=== PATIENT | male | born 1935 | race Caucasian/White ===

== ENCOUNTER 2016-10-24 19:53 | Inpatient (IN) | payer OTHER ==
--- NOTE | ~2016-10-24 | CN ---
Consultation Report [facility] [address]. [address] NAME: LEONILA RAHMAN : 37 STATUS : ADM IN PAT#: [id number] AGE: 81 ADM/REG DATE : 10/24/16 MR#: [id number] REPORT SERV DATE: 10/26/16 DICTATED BY: YADIRA ANGEL DATE: 10/25/16 REPORT STATUS : Draft TRANSCRIBED BY: MODL DATE: 10/25/16 DATE OF CONSULTATION: 10/25/2016 REASON FOR CONSULTATION: Abnormal CT scan of the chest. HISTORY OF PRESENT ILLNESS: Mr. Rahman is a 81-year-old white male, former smoker, with COPD and history of a left pneumonectomy years ago secondary to "something growing, not cancer." He was admitted complaining of shortness of breath after a recent ICU stay with mechanical ventilation at [facility]. Pulmonary was consulted secondary to an abnormal CT scan of the chest that was done as part of his initial workup. He is complaining of cough, productive of thick yellow sputum, that has been ongoing for several months. Additionally, he complains of recent wheezing and increasing dyspnea on exertion for more than one year. He denies fever, chills, chest pain, night sweats, or hemoptysis. He states he has a history of baseline dyspnea on exertion since his pneumonectomy was completed more than 30 years ago, but he feels his dyspnea has increased significantly over the past several weeks. He does have a history of COPD and has been on albuterol as an outpatient but is unsure if it has been beneficial. PAST MEDICAL HISTORY: 1. Pneumonectomy as described above - limited information is available. Mr. Rahman states that he was advised that "something is growing" in his lungs and that was not cancer. When he was in his 30s, he had a partial pneumonectomy on the left. He was re- evaluated several years later and advised that "whatever it was, was still growing," so he had the rest of his left lung removed. Since then, he has had baseline dyspnea on exertion as described above. 2. COPD - on albuterol only. He has been followed by outpatient dehydration plant operator, Dr. Kruse, and Dr. Kitchen. 3. Recent pneumonia. 4. Remote history of smoking/tobacco addiction. 5. Heme-positive stool/GI bleeding this admission. 6. Anemia. 7. Hypertension. 8. Coronary artery disease - prior stent, status post CABG. 9. Diabetes mellitus. 10.Chronic hypoxia. FAMILY HISTORY: Father who worked in a foundry and around cement had lung disease. SOCIAL HISTORY: Mr. Rahman smoked one pack of cigarettes per day for approximately 14 years and quit at 35 years of age. He denies ethanol intake, past/present drug use, chewing tobacco, or occupational exposures. He is a and has three children. Consultation Report [facility] [place] [id number] [place]. [address] NAME: LEONILA RAHMAN : 37 STATUS : ADM IN [facility]#: [id number] AGE: 81 ADM/REG DATE : 10/24/16 MR#: [id number] REPORT SERV DATE: 10/26/16 DICTATED BY: YADIRA ANGEL DATE: 10/25/16 REPORT STATUS : Draft TRANSCRIBED BY: VERNON DATE: 10/25/16 MEDICATIONS: Outpatient and inpatient medications were reviewed and are as documented in the record. As an outpatient, he was on albuterol as needed. ALLERGIES: HE DENIES MEDICATION ALLERGIES. REVIEW OF SYSTEMS: A 10-point system review was conducted and is remarkable for the symptoms as described in the history of present illness. PHYSICAL EXAMINATION: VITAL SIGNS: Temperature 97.1 degrees, heart rate 82, blood pressure 128/58, respiratory rate 16, oxygen saturation 99% on supplemental oxygen at a flow rate of 3 L/minute. GENERAL: Pleasant white male. Alert, oriented, no apparent distress. HEENT: Normocephalic. Atraumatic. There is no scleral icterus. The conjunctivae are clear. The oropharynx is clear. NECK: Supple. No lymphadenopathy was noted. LUNGS: There are diminished breath sounds on the left. There are few expiratory wheezes and scattered rare rhonchi on the right. There are no crackles. HEART: Regular rate and rhythm. No ectopy was noted. ABDOMEN: Soft. Nontender. Nondistended. There are normal bowel sounds in all four quadrants. BILATERAL EXTREMITIES: There is no clubbing, cyanosis, or edema. NEUROLOGICAL: A limited exam was found to be nonfocal. SKIN: No rashes are noted. There is generalized pallor. LABORATORY RESULTS: Labs were reviewed and are as documented in the record. Notable labs include a white blood cell count of 7.2. The BNP is 136.9. The procalcitonin is less than 0.05. Arterial blood gas #1 done soon after admission revealed a pH of 7.39, pCO2 of 59, and PO2 of 143 on 40% FiO2. Arterial blood gas #2, pH 7.36, pCO2 of 66, and PO2 of 93 on 35% percent FiO2. Arterial blood gas #3, pH 7.42, pCO2 of 66, and PO2 of 79 on 32% FiO2. IMAGING: The chest x-ray done this admission revealed a left pneumonectomy. There is a loculated right pleural effusion. There are patchy infiltrates throughout the right lung with a right lower lobe consolidation. CT angiogram of the chest revealed left pneumonectomy. No pulmonary embolism was identified. There is right lower lobe consolidation as well as patchy infiltrates in the right lung. There is mucus versus soft tissue occluding the right lower lobe main bronchus and a loculated pleural effusion on the right. Consultation Report [address] [address] NAME: LEONILA RAHMAN : 37 STATUS : ADM IN [facility]#: [id number] AGE: 81 ADM/REG DATE : 10/24/16 MR#: [id number] REPORT SERV DATE: 10/26/16 DICTATED BY: YADIRA ANGEL DATE: 10/25/16 REPORT STATUS : Draft TRANSCRIBED BY: VERNON DATE: 10/25/16 ASSESSMENT AND PLAN: Mr. Rahman is a 81-year-old white male, former smoker, with a history of a left pneumonectomy for unknown reason. He has patchy infiltrates and partial occlusion of the right lower lobe main bronchus as noted above. He does have a productive cough. Findings are likely related to infection. He has been started on antibiotics. Recommend continuing Maxipime and vancomycin. Check sputum for routine, fungal, and AFB cultures as the patient does have a history of "something growing" in his left lung, and he failed treatment at [facility] recently. With regard to his chronic obstructive pulmonary disease, recommend bronchodilators, nebulized steroids, pulmonary toilet - add flutter, EzPAP, and chest PT as this may help clear possible mucus plug. Additionally, recommend adding mucolytics and following chest imaging. Wean oxygen as tolerated. Consider bronchoscopy if there is no improvement. Thank you very much for this consultation. DEANGELO/VERNON Yadira Angel M.D. / [phone]
--- NOTE | ~2016-10-24 | DS ---
Discharge Summary [facility] [id number] [place]. [address] NAME: LEONILA ROY : 37 STATUS : DIS IN PAT#: [id number] AGE: 81 ADM/REG DATE : 10/24/16 MR#: [id number] REPORT SERV DATE: 11/03/16 DICTATED BY: MARLENY STREETER DATE: 11/02/16 REPORT STATUS : Draft TRANSCRIBED BY: MODL DATE: 11/02/16 ADMISSION DATE: 10/24/2016 DISCHARGE DATE: 11/01/2016 DISCHARGE DIAGNOSES: 1. Acute respiratory failure with hypercapnia. 2. Acute hypoxic respiratory failure on chronic hypoxia. 3. Chronic obstructive pulmonary disease exacerbation. 4. Healthcare-associated pneumonia. 5. Loculated right-sided pleural effusion. 6. Pulmonary hypertension. 7. Cor pulmonale. 8. Atrial flutter. 9. Chronic anemia from the chronic blood loss. 10.Hypertension. CONSULTANTS: 1. Yadira Mancini M.D. 2. Earl Albarado M.D. HISTORY OF PRESENT ILLNESS: This is a 81-year-old male patient, who does have significant chronic obstructive lung disease with a history of left-sided pneumonectomy, came to the hospital with short of breath. Please see dictated H and P. HOSPITAL COURSE: He was admitted to hospital with COPD exacerbation and also was treated with empiric antibiotics with broad-spectrum antibiotics for healthcare-associated pneumonia with a history of recent hospitalization at different facility. Please see dictated H and P. Please see dictated consultation note from Dr. Mancini. The patient was put on the empiric antibiotics and bronchodilator treatment for possible healthcare-associated pneumonia. He was remained in stable condition with IV antibiotics. Had a reevaluation with a CT scan of the chest to see any changes on loculated pleural effusion. A repeated CT scan showed a moderate loculated right pleural effusion. Dr. Briggs recommended getting the chest tube insertion and lytic therapy for this loculated pleural effusion in light of treatment of the healthcare-associated pneumonia. The patient was kept on the broad-spectrum antibiotics with vancomycin and cefepime the whole time of this hospitalization and he was taken down to procedure. Prior to the procedure he was found to be more lethargic and was found to be in hypercapnic respiratory failure. He was put on the BiPAP continuously and went to IMCU. At the IMCU he is improved within 24 hours with the use of the BiPAP. He had the following day an echocardiogram which showed pulmonary hypertension with slightly decreased left ventricular function. He was appropriately treated with an intermittent diuretics. However, while he was in the [facility] he and his family had a family meeting with Dr. Jacinto, who was in service at that time for the Pulmonary Service. The patient wished to be pure comfort measure. He did not want to have any BiPAP treatment or any of resuscitation. Therefore, the patient was thought to be a very high risk for any procedure at the moment. He is decided to be a complete comfort Discharge Summary [address] [address] NAME: LEONILA ROY : 37 STATUS : DIS IN PAT#: [id number] AGE: 81 ADM/REG DATE : 10/24/16 MR#: [id number] REPORT SERV DATE: 11/03/16 DICTATED BY: MARLENY STREETER DATE: 11/02/16 REPORT STATUS : Draft TRANSCRIBED BY: MODL DATE: 11/02/16 measure. Therefore, the patient was transferred out of the unit and stayed 24 hours and finally pronounced at 2345 hours on 11/01/2016. EKL/MODL Marleny Streeter M.D. / [id number] CC: Tommie Chavez M.D.
--- NOTE | ~2016-10-24 | CN ---
Consultation Report [facility] [address] [place]. [address] NAME: LEONILA ROY : 37 STATUS : ADM IN [facility]#: [id number] AGE: 81 ADM/REG DATE : 10/24/16 MR#: [id number] REPORT SERV DATE: 10/25/16 DICTATED BY: JACQUELIN SERRATO DATE: 10/25/16 REPORT STATUS : Draft TRANSCRIBED BY: MODL DATE: 10/25/16 GI CONSULTATION DATE OF CONSULTATION: 10/25/2016 HISTORY OF PRESENT ILLNESS: The patient is a 81-year-old white gentleman on whom we are consulted for anemia and hematochezia. The patient gives a several-month history of postcibal fullness and shortness of breath with any sort of eating. He has been noted to be anemic in the past and was in [facility] where they did not feel that he was a candidate for endoscopy and had some sort of x-rays which it may have been upper GI series. He complains of chronic heartburn and pain around his hernia and occasional intermittent hematochezia. He has had no colonoscopy in the past. PAST MEDICAL HISTORY: 1. Severe COPD, status post pneumonectomy. 2. History of hypertension. 3. Coronary artery disease. 4. Diabetes mellitus. MEDICATIONS: Reviewed. He does take aspirin and Plavix as well as Protonix on a regular basis but he continues to consume quite a bit of antacids for his heartburn. ALLERGIES: NONE. SOCIAL HISTORY: Noncontributory. PHYSICAL EXAMINATION: GENERAL: The patient is quite tachypneic white male with expiratory rhonchi. CARDIOVASCULAR: Regular rate and rhythm. ABDOMINAL EXAMINATION: Abdomen is protuberant with mild tenderness. No sera masses appreciated. LABORATORY DATA: Laboratory shows a hemoglobin of 8.1, hematocrit 28.1, BUN 48, creatinine 0.88. PT is 13.4 with an INR of 1. ASSESSMENT: 1. The patient has chronic anemia and hematochezia, although this patient on the basis of rectal disease certainly need to consider neoplasm, less likely will be ischemic in this patient. 2. The patient with chronic reflux and dyspepsia, consider peptic ulcer disease. 3. Chronic obstructive pulmonary disease status post pneumonectomy. 4. Coronary artery disease, bypass. 5. Diabetes mellitus. 6. Hypertension. Consultation Report [facility] [address] [place]. [address] NAME: LEONILA ROY : 37 STATUS : ADM IN PAT#: [id number] AGE: 81 ADM/REG DATE : 10/24/16 MR#: [id number] REPORT SERV DATE: 10/25/16 DICTATED BY: JACQUELIN SERRATO DATE: 10/25/16 REPORT STATUS : Draft TRANSCRIBED BY: MODL DATE: 10/25/16 RECOMMENDATION: 1. Continue protein pump inhibitor and try to avoid any anti-platelet agents. 2. Obtain previous evaluation from [facility] to see if he has had endoscopy. With this bleeding and continue anemia, I suspect he will need some sort of evaluation when his pulmonary status allows and certainly this would be a consideration between barium studies or endoscopy. SHANTI/VERNON Jacquelin Serrato M.D. / [id number] CC: Tommie Denny M.D.
--- NOTE | ~2016-10-24 | HP ---
History And Physical [facility] [address] [place]. [address] NAME: LEONILA RAHMAN : 37 STATUS : ADM IN PAT#: [id number] AGE: 81 ADM/REG DATE : 10/24/16 MR#: [id number] REPORT SERV DATE: 10/25/16 DICTATED BY: PATRICE GARCIA DATE: 10/24/16 REPORT STATUS : Draft TRANSCRIBED BY: MODL DATE: 10/24/16 DATE OF ADMISSION: 10/24/2016 CHIEF COMPLAINT: Shortness of breath and weakness. HISTORY OF PRESENT ILLNESS: This is a 81-year-old male who has a history of pneumonectomy on the left side, was recently found to have hypercapnic respiratory failure and was on mechanical ventilation at [facility], and discharged to a mcc, presents to the emergency room at [facility] with difficulty breathing. History is obtained from the patient's daughter who is at bedside and reviewing data available on the [employer]. According to available data, Mr. Rahman was admitted to [facility] in August of 2016 with dyspnea. There, he was placed on ventilatory support for hypercapnic respiratory failure, also had blood transfusion and this was followed by a cardiac catheterization by Dr. Cope with stent placement as well. We do not have the details of the above. The patient was then sent to the [facility] where he was doing rehabilitation. However, in the last two days or so, the patient was increasingly more short of breath, had weakness, and the patient was sent to the emergency room for evaluation. In the emergency room, initial workup revealed a hemoglobin of 8.1 and hematocrit of 28.1. His arterial blood gas was 7.5, 53, 103, and 42, but this was while he was transferred on a CPAP and placed on noninvasive positive pressure ventilatory support here. Unfortunately, we did not have a room air blood gas. A chest x-ray done in the emergency room also showed abnormalities on the right side, which is a good lung. He has had a pneumonectomy on the left. Hospitalist Service is asked to admit him for further evaluation and treatment. At the time of my evaluation, Mr. Rahman denied any chest pain, palpitations, or orthopnea. He had no cough, hemoptysis, night sweats, or weight loss. He has had no recent falls or loss of consciousness. No history of fevers, chills, nausea, vomiting, or diarrhea. No history of hematemesis, hematochezia, or hematuria. No other history of recent travel or exposures other than those mentioned above. PAST MEDICAL HISTORY: His past medical history is significant for history of COPD with right pneumonectomy, history of essential hypertension, and coronary artery disease with stent placement in August of 2016. He has also had a CABG. He also has diabetes mellitus type 2 and anemia, requiring blood transfusions last month. SOCIAL HISTORY: He does not smoke, drink, or use recreational drugs. FAMILY HISTORY: Noncontributory. MEDICATIONS: His medications at home were reviewed by me in the chart today and reordered by me. History And Physical [address] [address] NAME: LEONILA RAHMAN : 37 STATUS : ADM IN LOCATED WITHIN [facility]#: [id number] AGE: 81 ADM/REG DATE : 10/24/16 MR#: [id number] REPORT SERV DATE: 10/25/16 DICTATED BY: PATRICE GARCIA DATE: 10/24/16 REPORT STATUS : Draft TRANSCRIBED BY: VERNON DATE: 10/24/16 REVIEW OF SYSTEMS: As in history of present illness. All other systems were reviewed in detail and are quite unremarkable. PHYSICAL EXAMINATION: GENERAL: This is a pleasant 81-year-old, not in any acute distress. He is alert, awake, oriented to time, place, and person. HEENT: His head is atraumatic and normocephalic. His pupils are equal, reacting to light and accommodating. External ocular muscles are intact. Membranes are moist and pink. Sclerae are nonicteric. NECK: Supple with no jugular venous distention, lymphadenopathy, or thyromegaly. LUNGS: There are no breath sounds on the left. Right lung showed [id number] air entry with some crackles in the bases as well. There were few expiratory wheezes as well. HEART: Auscultation of his heart revealed regular rate and rhythm. ABDOMEN: Soft and nontender. Bowel sounds are present. EXTREMITIES: Showed no cyanosis, clubbing, or edema. NEUROLOGIC: Grossly intact. No focal sensory or motor deficits. Higher functions appeared intact. VITAL SIGNS: His vital signs today showed a temperature of 98.4, pulse 73, respirations 23 a minute, blood pressure was 129/45, and oxygen saturations were 100% on 40% FiO2 via BiPAP. LABORATORY DATA: Reviewed on the Arkm[employer] System showed a sodium of 142, potassium 5.0, chloride 98, CO2 of 39, BUN was 48 with a creatinine of 0.88, and blood glucose was 118. CBC revealed a normal white blood cell count, hemoglobin was 8.1, hematocrit 28.1, platelet count was 267, and MCV was 83.6. His troponin was 0.02. Prothrombin time was 13.4 with an INR of 1.0. Films of the chest x-ray were reviewed by me on the PACS today and interpreted by me. There are no prior films available for comparison. Per my interpretation, there is left pneumonectomy with evidence of prior median sternotomy. On the right side, there is a right lower lobe density versus atelectasis or consolidation or mass even. A 12-lead EKG done in the emergency room was reviewed and interpreted by me. There is atrial fibrillation with a rate of 99 and an incomplete right bundle-branch block. IMPRESSION: 1. Acute gastrointestinal bleed. 2. Shortness of breath. 3. Anemia. 4. Abnormal chest x-ray. 5. Chronic obstructive pulmonary disease. 6. Essential hypertension. 7. Coronary artery disease with stent placement and history of coronary artery bypass graft. 8. Diabetes mellitus type 2. PLAN: We will admit Mr. Rahman to the Hospitalist Service with telemetry for close monitoring. For his GI bleeding, we will go ahead and follow serial hemoglobin and hematocrit levels, and consult Gastroenterology Service to see him in the morning. It is complicated by recent stent placement and the patient being on Plavix and aspirin. I have History And Physical [address] [place]. [address] NAME: LEONILA RAMHAN : 39 STATUS : ADM IN LOCATED [facility]IN [facility]#: [id number] AGE: 81 ADM/REG DATE : 10/24/16 MR#: [id number] REPORT SERV DATE: 10/25/16 DICTATED BY: PATRICE GARCIA DATE: 10/24/16 REPORT STATUS : Draft TRANSCRIBED BY: MODL DATE: 10/24/16 no details on the stents, so we will request information from [facility]. Meanwhile, we will ask Cardiology Service here to evaluate him as well. He is not in any hypoxic respiratory failure, rather hypercapnic, so we will hold off transfusing right now. His respiratory status is complicated by him having only his right lung of which he has abnormalities. We will go ahead and get a CT scan of his chest to further evaluate abnormalities seen on the chest x-ray. Meanwhile, we will go ahead and maximize his bronchodilator treatments, continue supplemental oxygen therapy, and leave him on noninvasive positive pressure ventilation that he is on. Adjustments to the BiPAP have been made by me after evaluating his progress with another arterial blood gas done right now. We will also go ahead and check his BNP and see if he needs any diuretic therapy. We will also start him on Protonix infusion for his acute gastrointestinal bleeding at this time. At this time, we will go ahead and place him on SCDs for DVT prophylaxis as well. I have discussed the above plans with the patient and his daughter, questions were answered, and they are agreeable to the above recommendations. Hospitalist Service will be following him during his stay here. /VERNON Patrice Garcia M.D. / [id number] CC: Tommie Denny M.D.
[2016-10-24 19:16] LABS: BASOPHILS 0.1 %; BASOPHILS ABSOLUTE 0.01 10/3/uL (0.0-0.16); EOSINOPHILS 0.3 %; EOSINOPHILS ABSOLUTE 0.02 10/3/uL (0.0-0.53); HEMATOCRIT 28.1 % (40.0-51.0); HEMOGLOBIN 8.1 g/dL (13.6-17.8); IMMATURE GRANULOCYTES 0.4 %; IMMATURE GRANULOCYTES ABSOLUTE 0.03 10/3/uL (0.0-0.11); LYMPHOCYTES 5.5 %; LYMPHOCYTES ABSOLUTE 0.43 10/3/uL (0.67-4.30); MEAN CORPUS HGB CONC 28.8 g/dL (32.0-36.0); MEAN CORPUSCULAR HEMOGLOB 24.1 pg (26.0-34.0); MEAN CORPUSCULAR VOLUME 83.6 fL (80-100); MONOCYTES 3.9 %; MONOCYTES ABSOLUTE 0.31 10/3/uL (0.21-1.20); NEUTROPHILS 89.8 %; NEUTROPHILS ABSOLUTE 7.06 10/3/uL (2.02-8.40); PLATELET COUNT 267 10/3/uL (150-400); RED CELL COUNT 3.36 10/6/uL (4.7-6.1); WHITE BLOOD CELLS 7.9 10/3/uL (4.5-10.5)
[2016-10-24 19:18] LABS: MANUAL DIFF NO %
[2016-10-24 19:29] LABS: PROTIME (NOT ORD) 13.4 SEC (12.0-14.5)
[2016-10-24 19:30] LABS: PARTIAL THROMBO TIME 26.4 SEC (22.5-37.2)
[2016-10-24 19:32] LABS: BUN (BLOOD UREA NITROGEN) 48 MG/DL (6-23); CALCIUM, SERUM 8.4 MG/DL (8.5-10.4); CHEST PAIN PROFILE TAT 0 Hrs 20 Mins; CHLORIDE, SERUM 98 MMOL/L (96-112); CO2 (CARBON DIOXIDE) 39 MMOL/L (24-34); CREATININE 0.88 MG/DL (0.70-1.30); GFR AFRICAN AMERICAN 95 ML/MIN (>=60); GFR NON AFRICAN AMERICAN 82 ML/MIN (>=60); GLUCOSE, SERUM 118 MG/DL (60-99); SODIUM, SERUM 142 MMOL/L (135-148); TROPONIN I 0.02 NG/ML (<0.05)
[2016-10-24] MEDS ORDERED: PROTONIX PO (20:41)
[2016-10-24] MEDS ORDERED: MULTIVIT/MIN PO (20:41)
[2016-10-24] MEDS ORDERED: L20 PO (20:42)
[2016-10-24] MEDS ORDERED: PLAVIX PO (20:42)
[2016-10-24] MEDS ORDERED: HALF81 PO (20:42)
[2016-10-24] MEDS ORDERED: CARDCD240 PO (20:42)
[2016-10-24] MEDS ORDERED: LIPITOR40 PO (20:49)
[2016-10-24] MEDS ORDERED: MUCINEX DM 600/30MG PO (20:49)
[2016-10-24] MEDS ORDERED: FLOMAX4 PO (20:49)
[2016-10-24] MEDS ORDERED: PROAIR HFA INH (20:49)
[2016-10-24] MEDS ORDERED: ALBUTEROL0.083 % INH (20:50)
[2016-10-24] MEDS ORDERED: STERAPRED DS10 MG (20:58)
[2016-10-24 21:15] LABS: ALLENS TEST Pos; BE (BASE EXCESS) 8.5 MEQ/L (0 +/- 2.5); BIPAP 17/9 cm.H2O; CARBOXYHEMOGLOBIN 1.2 % (0-3); HCO3 (ACTUAL BICARBONATE) 34.7 MEQ/L (23-27); HEMOBLOGIN CONTENT 8.7 G/DL (14-18); INSTRUMENT SERIAL # 8087; METHEMOGLOBIN 0.5 % (0-3); O2 CONTENT 12.2 VOL% (18-24); OPERATOR ID 17589; PCO2 (CO2 TENSION) 59 MMHG (35-45); PO2 (O2 TENSION) 143 MMHG (79-93); SAMPLE Arterial; pH 7.39 (7.37-7.43)
[2016-10-25 01:37] LABS: HEMATOCRIT 28.5 % (40.0-51.0)
[2016-10-25 05:54] LABS: BASOPHILS 0.1 %; BASOPHILS ABSOLUTE 0.01 10/3/uL (0.0-0.16); EOSINOPHILS 0 %; HEMOGLOBIN 8.8 g/dL (13.6-17.8); IMMATURE GRANULOCYTES 0.4 %; IMMATURE GRANULOCYTES ABSOLUTE 0.03 10/3/uL (0.0-0.11); LYMPHOCYTES 2.1 %; LYMPHOCYTES ABSOLUTE 0.15 10/3/uL (0.67-4.30); MEAN CORPUSCULAR HEMOGLOB 23.7 pg (26.0-34.0); MEAN CORPUSCULAR VOLUME 84.6 fL (80-100); MEAN PLATELET VOLUME 9.3 fL (9.2-13.0); MONOCYTES 1.1 %; MONOCYTES ABSOLUTE 0.08 10/3/uL (0.21-1.20); NEUTROPHILS 96.3 %; NEUTROPHILS ABSOLUTE 6.95 10/3/uL (2.02-8.40); PLATELET COUNT 249 10/3/uL (150-400); RBC DISTRIBUTION WIDTH 17.1 % (12.0-16.0); RED CELL COUNT 3.71 10/6/uL (4.7-6.1); WHITE BLOOD CELLS 7.2 10/3/uL (4.5-10.5)
[2016-10-25 05:57] LABS: HEMATOCRIT 31.4 % (40.0-51.0); MANUAL DIFF NO %
[2016-10-25 06:09] LABS: ALLENS TEST Pos; BE (BASE EXCESS) 9.2 MEQ/L (0 +/- 2.5); BIPAP 14/5 cm.H2O; CARBOXYHEMOGLOBIN 0.4 % (0-3); HCO3 (ACTUAL BICARBONATE) 36.3 MEQ/L (23-27); HEMOBLOGIN CONTENT 9.5 G/DL (14-18); INSTRUMENT SERIAL # 35151; METHEMOGLOBIN 0.7 % (0-3); O2 CONTENT 12.9 VOL% (18-24); OPERATOR ID 18978; PCO2 (CO2 TENSION) 66 MMHG (35-45); PO2 (O2 TENSION) 93 MMHG (79-93); SAMPLE Arterial; pH 7.36 (7.37-7.43)
[2016-10-25 06:14] LABS: BUN (BLOOD UREA NITROGEN) 43 MG/DL (6-23); CALCIUM, SERUM 8.7 MG/DL (8.5-10.4); CHLORIDE, SERUM 100 MMOL/L (96-112); CO2 (CARBON DIOXIDE) 39 MMOL/L (24-34); CREATININE 0.79 MG/DL (0.70-1.30); GFR AFRICAN AMERICAN 99 ML/MIN (>=60); GFR NON AFRICAN AMERICAN 85 ML/MIN (>=60); GLUCOSE, SERUM 166 MG/DL (60-99); PHOSPHORUS, SERUM 2.8 MG/DL (2.5-4.5); POTASSIUM, SERUM 5.3 MMOL/L (3.5-5.3); SODIUM, SERUM 144 MMOL/L (135-148)
[2016-10-25 08:22] LABS: WBC (NOT ORDERED) (RFLEX) 0 (0-5)
[2016-10-25 09:41] LABS: ASCORBIC ACID (UR NOT ORDER) 20 (NEG); BILIRUBIN, URINE NEGATIVE (NEG); KETONE, URINE NEGATIVE (NEG); LEUKOCYTE ESTERASE(NOT OR NEG (NEG)
[2016-10-25 10:13] LABS: PROCALCITONIN <0.05 ng/mL (<0.5)
[2016-10-25 12:03] LABS: % IRON SAT 8 % (20-50); ALBUMIN 2.6 G/DL (3.5-5.0); ALKALINE PHOSPHATASE 121 U/L (45-117); FERRITIN 39 NG/ML (26-388); IRON BINDING CAPACITY 318 MCG/DL (250-450); IRON, SERUM 27 MCG/DL (35-150); SGOT(AST) 37 U/L (5-40); SGPT(ALT) 58 U/L (5-65); TOTAL BILIRUBIN 0.2 MG/DL (0-1.2); TOTAL PROTEIN 6.1 G/DL (6.0-8.5); TROPONIN I 0.02 NG/ML (<0.05)
[2016-10-25 12:04] LABS: DIRECT BILIRUBIN < 0.1 MG/DL (0.0-0.4); INDIRECT BILIRUBIN(NOT ORDER) 0.1 MG/DL (0.1-0.9)
[2016-10-25 13:03] LABS: ALLENS TEST Pos; BE (BASE EXCESS) 14.5 MEQ/L (0 +/- 2.5); CARBOXYHEMOGLOBIN 0.2 % (0-3); DEVICE NC; HCO3 (ACTUAL BICARBONATE) 41.3 MEQ/L (23-27); HEMOBLOGIN CONTENT 10.5 G/DL (14-18); INSTRUMENT SERIAL # 35151; METHEMOGLOBIN 0.5 % (0-3); O2 CONTENT 14.1 VOL% (18-24); PCO2 (CO2 TENSION) 66 MMHG (35-45); PO2 (O2 TENSION) 79 MMHG (79-93); SAMPLE Arterial; pH 7.42 (7.37-7.43)
[2016-10-25 13:18] LABS: INFLUENZA A SCREEN NEGATIVE (NEGATIVE); INFLUENZA B SCREEN NEGATIVE (NEGATIVE)
[2016-10-25 13:48] LABS: HEMATOCRIT 30.8 % (40.0-51.0); HEMOGLOBIN 8.6 g/dL (13.6-17.8)
[2016-10-26 03:38] LABS: BE (BASE EXCESS) 12.2 MEQ/L (0 +/- 2.5); CARBOXYHEMOGLOBIN 0.3 % (0-3); DEVICE NC; HEMOBLOGIN CONTENT 9.4 G/DL (14-18); INSTRUMENT SERIAL # 35151; METHEMOGLOBIN 0.6 % (0-3); O2 CONTENT 13.2 VOL% (18-24); PCO2 (CO2 TENSION) 75 MMHG (35-45); PO2 (O2 TENSION) 145 MMHG (79-93); SAMPLE Arterial; pH 7.35 (7.37-7.43)
[2016-10-26 05:35] LABS: BASOPHILS 0.1 %; BASOPHILS ABSOLUTE 0.01 10/3/uL (0.0-0.16); EOSINOPHILS 0.1 %; EOSINOPHILS ABSOLUTE 0.01 10/3/uL (0.0-0.53); HEMATOCRIT 30.6 % (40.0-51.0); HEMOGLOBIN 8.8 g/dL (13.6-17.8); IMMATURE GRANULOCYTES 0.4 %; IMMATURE GRANULOCYTES ABSOLUTE 0.06 10/3/uL (0.0-0.11); LYMPHOCYTES 3.1 %; LYMPHOCYTES ABSOLUTE 0.42 10/3/uL (0.67-4.30); MEAN CORPUS HGB CONC 28.8 g/dL (32.0-36.0); MEAN CORPUSCULAR HEMOGLOB 24.9 pg (26.0-34.0); MEAN CORPUSCULAR VOLUME 86.7 fL (80-100); MEAN PLATELET VOLUME 9.2 fL (9.2-13.0); MONOCYTES 7.3 %; MONOCYTES ABSOLUTE 0.99 10/3/uL (0.21-1.20); NEUTROPHILS ABSOLUTE 11.98 10/3/uL (2.02-8.40); PLATELET COUNT 289 10/3/uL (150-400); RBC DISTRIBUTION WIDTH 16.9 % (12.0-16.0); RED CELL COUNT 3.53 10/6/uL (4.7-6.1)
[2016-10-26 05:40] LABS: MANUAL DIFF NO %; WHITE BLOOD CELLS 13.5 10/3/uL (4.5-10.5)
[2016-10-26 05:55] LABS: BUN (BLOOD UREA NITROGEN) 42 MG/DL (6-23); CALCIUM, SERUM 8.9 MG/DL (8.5-10.4); CHLORIDE, SERUM 101 MMOL/L (96-112); CO2 (CARBON DIOXIDE) 36 MMOL/L (24-34); CREATININE 0.89 MG/DL (0.70-1.30); GFR AFRICAN AMERICAN 94 ML/MIN (>=60); GFR NON AFRICAN AMERICAN 81 ML/MIN (>=60); POTASSIUM, SERUM 4.7 MMOL/L (3.5-5.3); SODIUM, SERUM 142 MMOL/L (135-148)
[2016-10-26 05:56] LABS: GLUCOSE, SERUM 106 MG/DL (60-99)
[2016-10-27 06:18] LABS: BASOPHILS 0.1 %; BASOPHILS ABSOLUTE 0.01 10/3/uL (0.0-0.16); EOSINOPHILS 0.5 %; EOSINOPHILS ABSOLUTE 0.05 10/3/uL (0.0-0.53); HEMATOCRIT 29.2 % (40.0-51.0); HEMOGLOBIN 8.5 g/dL (13.6-17.8); LYMPHOCYTES 7.3 %; LYMPHOCYTES ABSOLUTE 0.71 10/3/uL (0.67-4.30); MEAN CORPUS HGB CONC 29.1 g/dL (32.0-36.0); MEAN CORPUSCULAR HEMOGLOB 25.1 pg (26.0-34.0); MEAN CORPUSCULAR VOLUME 86.4 fL (80-100); MONOCYTES ABSOLUTE 0.48 10/3/uL (0.21-1.20); NEUTROPHILS 86.1 %; NEUTROPHILS ABSOLUTE 8.33 10/3/uL (2.02-8.40); PLATELET COUNT 303 10/3/uL (150-400); RBC DISTRIBUTION WIDTH 16.9 % (12.0-16.0); RED CELL COUNT 3.38 10/6/uL (4.7-6.1); WHITE BLOOD CELLS 9.7 10/3/uL (4.5-10.5)
[2016-10-27 06:28] LABS: MANUAL DIFF NO %
[2016-10-27 06:29] LABS: BUN (BLOOD UREA NITROGEN) 39 MG/DL (6-23); CHLORIDE, SERUM 100 MMOL/L (96-112); CO2 (CARBON DIOXIDE) 37 MMOL/L (24-34); GFR AFRICAN AMERICAN 98 ML/MIN (>=60); GFR NON AFRICAN AMERICAN 85 ML/MIN (>=60); GLUCOSE, SERUM 97 MG/DL (60-99); SODIUM, SERUM 142 MMOL/L (135-148)
[2016-10-27 06:31] LABS: POTASSIUM, SERUM 4.5 MMOL/L (3.5-5.3)
[2016-10-28 06:21] LABS: BASOPHILS 0.3 %; BASOPHILS ABSOLUTE 0.03 10/3/uL (0.0-0.16); EOSINOPHILS 0.9 %; EOSINOPHILS ABSOLUTE 0.08 10/3/uL (0.0-0.53); HEMATOCRIT 30.5 % (40.0-51.0); HEMOGLOBIN 8.7 g/dL (13.6-17.8); IMMATURE GRANULOCYTES 4.4 %; IMMATURE GRANULOCYTES ABSOLUTE 0.38 10/3/uL (0.0-0.11); LYMPHOCYTES 7.6 %; LYMPHOCYTES ABSOLUTE 0.66 10/3/uL (0.67-4.30); MANUAL DIFF NO %; MEAN CORPUS HGB CONC 28.5 g/dL (32.0-36.0); MEAN CORPUSCULAR HEMOGLOB 24.6 pg (26.0-34.0); MEAN CORPUSCULAR VOLUME 86.2 fL (80-100); MEAN PLATELET VOLUME 9.2 fL (9.2-13.0); MONOCYTES 5.8 %; MONOCYTES ABSOLUTE 0.51 10/3/uL (0.21-1.20); NEUTROPHILS ABSOLUTE 7.07 10/3/uL (2.02-8.40); PLATELET COUNT 275 10/3/uL (150-400); RBC DISTRIBUTION WIDTH 16.6 % (12.0-16.0); RED CELL COUNT 3.54 10/6/uL (4.7-6.1); WHITE BLOOD CELLS 8.7 10/3/uL (4.5-10.5)
[2016-10-28 06:28] LABS: BUN (BLOOD UREA NITROGEN) 41 MG/DL (6-23); CALCIUM, SERUM 8.1 MG/DL (8.5-10.4); CHLORIDE, SERUM 102 MMOL/L (96-112); CO2 (CARBON DIOXIDE) 38 MMOL/L (24-34); CREATININE 0.68 MG/DL (0.70-1.30); GFR AFRICAN AMERICAN 105 ML/MIN (>=60); GFR NON AFRICAN AMERICAN 91 ML/MIN (>=60); GLUCOSE, SERUM 95 MG/DL (60-99); POTASSIUM, SERUM 4.2 MMOL/L (3.5-5.3); SODIUM, SERUM 145 MMOL/L (135-148)
[2016-10-29 04:36] LABS: HEMATOCRIT 30.4 % (40.0-51.0); HEMOGLOBIN 8.4 g/dL (13.6-17.8); MANUAL DIFF YES %; MEAN CORPUS HGB CONC 27.6 g/dL (32.0-36.0); MEAN CORPUSCULAR HEMOGLOB 24.3 pg (26.0-34.0); MEAN CORPUSCULAR VOLUME 87.9 fL (80-100); MEAN PLATELET VOLUME 9.2 fL (9.2-13.0); PLATELET COUNT 281 10/3/uL (150-400); RBC DISTRIBUTION WIDTH 16.9 % (12.0-16.0); RED CELL COUNT 3.46 10/6/uL (4.7-6.1); WHITE BLOOD CELLS 9.7 10/3/uL (4.5-10.5)
[2016-10-29 04:43] LABS: ALBUMIN 2.3 G/DL (3.5-5.0); BUN (BLOOD UREA NITROGEN) 38 MG/DL (6-23); CALCIUM, SERUM 8.4 MG/DL (8.5-10.4); CHLORIDE, SERUM 101 MMOL/L (96-112); CO2 (CARBON DIOXIDE) 40 MMOL/L (24-34); GFR AFRICAN AMERICAN 98 ML/MIN (>=60); GFR NON AFRICAN AMERICAN 85 ML/MIN (>=60); GLUCOSE, SERUM 96 MG/DL (60-99); PHOSPHORUS, SERUM 2.1 MG/DL (2.5-4.5); POTASSIUM, SERUM 4.6 MMOL/L (3.5-5.3); PREALBUMIN 23.9 MG/DL (17.0-43.0); SODIUM, SERUM 143 MMOL/L (135-148)
[2016-10-29 04:53] LABS: BAND NEUTROPHILS 5 %; EOSINOPHILS 2 %; EOSINOPHILS ABSOLUTE (CALC) 0.19 10/3/uL (0.0-0.53); IMMATURE GRANS ABSOLUTE (CALC) 0.39 10/3/uL (0.0-0.11); LYMPHOCYTES 14 %; LYMPHOCYTES ABSOLUTE (CALC) 1.36 10/3/uL (0.67-4.30); METAMYELOCYTES 2 %; MONOCYTES 6 %; MONOCYTES ABSOLUTE (CALC) 0.58 10/3/uL (0.21-1.20); MYELOCYTES 2 %; NEUTROPHILS ABSOLUTE (CALC) 7.18 10/3/uL (2.02-8.40); SEGMENTED NEUTROPHIL (0) 69 %; TOTAL NUCLEATED CELLS 100
[2016-10-29 04:54] LABS: ANISOCYTOSIS 1+ (5-10/OIF) (0-5/OIF); HYPOCHROMIA 1+ (3-10/OIF) (0-2/OIF); PLATELET ESTIMATE ADQ (ADEQUATE)
[2016-10-30 05:34] LABS: HEMATOCRIT 30.4 % (40.0-51.0); HEMOGLOBIN 8.6 g/dL (13.6-17.8); MEAN CORPUS HGB CONC 28.3 g/dL (32.0-36.0); MEAN CORPUSCULAR HEMOGLOB 24.3 pg (26.0-34.0); MEAN CORPUSCULAR VOLUME 85.9 fL (80-100); MEAN PLATELET VOLUME 8.9 fL (9.2-13.0); PLATELET COUNT 266 10/3/uL (150-400); RBC DISTRIBUTION WIDTH 16.9 % (12.0-16.0); RED CELL COUNT 3.54 10/6/uL (4.7-6.1)
[2016-10-30 05:39] LABS: MANUAL DIFF YES %; PROTIME (NOT ORD) 13.5 SEC (12.0-14.5)
[2016-10-30 05:40] LABS: PARTIAL THROMBO TIME 29.6 SEC (22.5-37.2)
[2016-10-30 05:49] LABS: BUN (BLOOD UREA NITROGEN) 41 MG/DL (6-23); CALCIUM, SERUM 8.4 MG/DL (8.5-10.4); CHLORIDE, SERUM 97 MMOL/L (96-112); CO2 (CARBON DIOXIDE) 38 MMOL/L (24-34); CREATININE 0.78 MG/DL (0.70-1.30); GFR AFRICAN AMERICAN 100 ML/MIN (>=60); GFR NON AFRICAN AMERICAN 86 ML/MIN (>=60); POTASSIUM, SERUM 4.6 MMOL/L (3.5-5.3); SODIUM, SERUM 142 MMOL/L (135-148)
[2016-10-30 05:53] LABS: GLUCOSE, SERUM 146 MG/DL (60-99)
[2016-10-30 07:23] LABS: BAND NEUTROPHILS 5 %; IMMATURE GRANS ABSOLUTE (CALC) 0.15 10/3/uL (0.0-0.11); LYMPHOCYTES 4 %; METAMYELOCYTES 1 %; MONOCYTES 2 %; NEUTROPHILS ABSOLUTE (CALC) 13.95 10/3/uL (2.02-8.40); PLATELET ESTIMATE ADQ (ADEQUATE); SEGMENTED NEUTROPHIL (0) 88 %; TOTAL NUCLEATED CELLS 100
[2016-10-30 15:01] LABS: ALLENS TEST Pos; CARBOXYHEMOGLOBIN 1.4 % (0-3); DEVICE SM; HCO3 (ACTUAL BICARBONATE) 50.3 MEQ/L (23-27); HEMOBLOGIN CONTENT 9.5 G/DL (14-18); INSTRUMENT SERIAL # 8087; METHEMOGLOBIN 0.5 % (0-3); O2 CONTENT 12.5 VOL% (18-24); PCO2 (CO2 TENSION) 139 MMHG (35-45); PO2 (O2 TENSION) 82 MMHG (79-93); SAMPLE Arterial; pH 7.18 (7.37-7.43)
[2016-10-30 16:57] LABS: ALLENS TEST Pos; BE (BASE EXCESS) 12.4 MEQ/L (0 +/- 2.5); BIPAP 14/5 cm.H2O; HCO3 (ACTUAL BICARBONATE) 43.8 MEQ/L (23-27); HEMOBLOGIN CONTENT 9.4 G/DL (14-18); INSTRUMENT SERIAL # 8083; METHEMOGLOBIN 0.4 % (0-3); O2 CONTENT 13.1 VOL% (18-24); OPERATOR ID 35091; PCO2 (CO2 TENSION) 121 MMHG (35-45); PO2 (O2 TENSION) 132 MMHG (79-93); SAMPLE Arterial; pH 7.18 (7.37-7.43)
[2016-10-31 04:14] LABS: BIPAP 14/5 cm.H2O; CARBOXYHEMOGLOBIN 1.4 % (0-3); HCO3 (ACTUAL BICARBONATE) 47.2 MEQ/L (23-27); INSTRUMENT SERIAL # 8083; METHEMOGLOBIN 0.3 % (0-3); O2 CONTENT 12.1 VOL% (18-24); OPERATOR ID 14661; PCO2 (CO2 TENSION) 95 MMHG (35-45); PO2 (O2 TENSION) 85 MMHG (79-93); SAMPLE Arterial; pH 7.31 (7.37-7.43)
[2016-10-31 04:35] LABS: CALCIUM, SERUM 8.4 MG/DL (8.5-10.4); CHLORIDE, SERUM 97 MMOL/L (96-112); CREATININE 0.94 MG/DL (0.70-1.30); GFR AFRICAN AMERICAN 89 ML/MIN (>=60); GFR NON AFRICAN AMERICAN 77 ML/MIN (>=60); POTASSIUM, SERUM 4.7 MMOL/L (3.5-5.3); SODIUM, SERUM 144 MMOL/L (135-148)
[2016-10-31 04:37] LABS: BUN (BLOOD UREA NITROGEN) 48 MG/DL (6-23); CO2 (CARBON DIOXIDE) > 45 MMOL/L (24-34); GLUCOSE, SERUM 90 MG/DL (60-99)
[2016-10-31 05:42] LABS: HEMATOCRIT 32.2 % (40.0-51.0); HEMOGLOBIN 8.8 g/dL (13.6-17.8); MEAN CORPUS HGB CONC 27.3 g/dL (32.0-36.0); MEAN CORPUSCULAR HEMOGLOB 24.6 pg (26.0-34.0); MEAN PLATELET VOLUME 9.4 fL (9.2-13.0); NUCLEATED RED BLOOD CELLS 0.3 /100WBC (0-0); PLATELET COUNT 342 10/3/uL (150-400); RBC DISTRIBUTION WIDTH 16.8 % (12.0-16.0); RED CELL COUNT 3.57 10/6/uL (4.7-6.1); WHITE BLOOD CELLS 15.4 10/3/uL (4.5-10.5)
[2016-10-31 05:46] LABS: MANUAL DIFF YES %; MEAN CORPUSCULAR VOLUME 90.2 fL (80-100)
[2016-10-31 05:58] LABS: PROCALCITONIN 0.09 ng/mL (<0.5)
[2016-10-31 06:40] LABS: ANISOCYTOSIS 1+ (5-10/OIF) (0-5/OIF); BAND NEUTROPHILS 9 %; IMMATURE GRANS ABSOLUTE (CALC) 0.62 10/3/uL (0.0-0.11); LYMPHOCYTES 10 %; LYMPHOCYTES ABSOLUTE (CALC) 1.54 10/3/uL (0.67-4.30); METAMYELOCYTES 1 %; MONOCYTES 1 %; MONOCYTES ABSOLUTE (CALC) 0.15 10/3/uL (0.21-1.20); MYELOCYTES 3 %; NEUTROPHILS ABSOLUTE (CALC) 13.09 10/3/uL (2.02-8.40); PLATELET ESTIMATE ADQ (ADEQUATE); SEGMENTED NEUTROPHIL (0) 76 %; TOTAL NUCLEATED CELLS 100
[2016-10-31 06:41] LABS: STOMATOCYTES 1+ (3-10/OIF) (0-2/OIF)
[2016-11-01 05:37] LABS: CALCIUM, SERUM 8.4 MG/DL (8.5-10.4); CHLORIDE, SERUM 96 MMOL/L (96-112); GFR AFRICAN AMERICAN 83 ML/MIN (>=60); GFR NON AFRICAN AMERICAN 71 ML/MIN (>=60); GLUCOSE, SERUM 106 MG/DL (60-99); POTASSIUM, SERUM 4.2 MMOL/L (3.5-5.3); SODIUM, SERUM 141 MMOL/L (135-148)
[2016-11-01 05:40] LABS: BUN (BLOOD UREA NITROGEN) 52 MG/DL (6-23); CO2 (CARBON DIOXIDE) 44 MMOL/L (24-34)
[2016-11-01 05:52] LABS: BASOPHILS 0.4 %; BASOPHILS ABSOLUTE 0.07 10/3/uL (0.0-0.16); EOSINOPHILS 0.1 %; EOSINOPHILS ABSOLUTE 0.01 10/3/uL (0.0-0.53); HEMOGLOBIN 7.3 g/dL (13.6-17.8); IMMATURE GRANULOCYTES 2.8 %; IMMATURE GRANULOCYTES ABSOLUTE 0.46 10/3/uL (0.0-0.11); LYMPHOCYTES 9.2 %; MEAN CORPUS HGB CONC 27.7 g/dL (32.0-36.0); MEAN CORPUSCULAR HEMOGLOB 24.3 pg (26.0-34.0); MEAN PLATELET VOLUME 8.9 fL (9.2-13.0); MONOCYTES 3.9 %; MONOCYTES ABSOLUTE 0.64 10/3/uL (0.21-1.20); NEUTROPHILS 83.6 %; NEUTROPHILS ABSOLUTE 13.59 10/3/uL (2.02-8.40); PLATELET COUNT 302 10/3/uL (150-400); RBC DISTRIBUTION WIDTH 16.7 % (12.0-16.0); WHITE BLOOD CELLS 16.3 10/3/uL (4.5-10.5)
[2016-11-01 05:53] LABS: HEMATOCRIT 26.4 % (40.0-51.0); MANUAL DIFF NO %
[2016-11-01 06:47] LABS: HYPOCHROMIA 3+ (>30/OIF) (0-2/OIF); PLATELET ESTIMATE ADQ (ADEQUATE)
[2016-11-01 06:48] LABS: MACROCYTES 1+ (5-10/OIF) (0-5/OIF); POLYCHROMASIA 1+ (2-5/OIF) (0-1/OIF)
== END 2016-11-01 23:45 | disposition expired | DRG 377 ==
LOC: ER 19:53 → 5NO 21:11 → IMCU 10-30 15:52 → 5NO 10-31 22:51
PROVIDERS: Emergency Medicine; Hospitalist; Internal Medicine; Internal Medicine Pulmonary Disease; Nurse Practitioner Family
PROC: 5A09457 Assistance with Respiratory Ventilation, 24-96 Consecutive Hours, Continuous Positive Airway Pressure (ICD-10-PCS; principal; 2016-10-30)
DX: K92.2 Gastrointestinal hemorrhage, unspecified (principal); J96.02 Acute respiratory failure with hypercapnia; J96.01 Acute respiratory failure with hypoxia; J18.1 Lobar pneumonia, unspecified organism; J90 Pleural effusion, not elsewhere classified; E11.9 Type 2 diabetes mellitus without complications; I48.92 Unspecified atrial flutter; J44.0 Chronic obstructive pulmonary disease with (acute) lower respiratory infection; D50.0 Iron deficiency anemia secondary to blood loss (chronic); I10 Essential (primary) hypertension; J44.1 Chronic obstructive pulmonary disease with (acute) exacerbation; I25.10 Atherosclerotic heart disease of native coronary artery without angina pectoris; Z95.1 Presence of aortocoronary bypass graft; Z87.891 Personal history of nicotine dependence; Z90.2 Acquired absence of lung [part of]; Z95.5 Presence of coronary angioplasty implant and graft; Z66 Do not resuscitate
CPT/HCPCS: 36415; 36600; 71010; 71020; 71250; 71275; 80048; 80069; 80076; 80202; 81001; 82330; 82607; 82728; 82803; 82805; 82947; 82962; 83036; 83540; 83550; 83735; 83880; 84100; 84132; 84134; 84145; 84295; 84484; 85014; 85018; 85025; 85610; 85730; 86850; 86900; 86901; 86920; 87040; 87070; 87205; 87449; 87804; 93005; 94640; 94660; 94667; 94668; 96374; 97162-GP; 99285; A9270-GY; C8929; C9113; J0692; J2916; J2920; J2930; J3370; Q9957; Q9967